=== PATIENT | female | born 1985 ===

== ENCOUNTER 2016-11-04 15:06 | Emergency (ER) | payer OTHER ==
[2016-11-04 15:33] VITALS: BMI 32.9
--- NOTE | 2016-11-04 18:22 | US ---
PROCEDURE: Ultrasound examination of the pelvis. HISTORY: decreased movement COMPARISON: Comparison is made to the previous study dated 05/27/2016 TECHNIQUE: Limited ultrasound examination of the 3rd trimester to evaluate biophysical profile, presentation and uterine cervix. FINDINGS: Single intrauterine live seen at cephalic presentation. The heart rate is 126 BPM. The main tech fluid index is 12.2 centimeter. The cervix is closed measures 4.3 centimeter. The calculated biophysical profile is 8 of 8. Placenta is seen at the anterior wall. IMPRESSION: Single intrauterine seen at cephalic presentation at the time of this exam with the ultrasound estimated gestational age of 39 weeks 6 days. Cervix length is 4.3 centimeter. Amniotic fluid index is 12.2 centimeter.
--- NOTE | 2016-11-04 19:07 | OBHP ---
Datetime: 11/04/2016 16:45 IP Adm Impression: Term, intrauterine IP Admit Plan: Observation/Evaluation; Discharge home Admit Comment, IP Provider: 30 yo G1 at 39+6 wks w/ little PN care, w/ [facility] 11/05/2016 c/o "crazy nayan k pain for a couple of days," decribes kristina pain as consistent but waxed and wanes. Pt reports that she doesn't know if she is having ctxns. Pt also reports leaking a litle this am, also reports decr eased FM since 10:30 am. Pt also reports a lot of pressure in pelvic area, reports a fishy odor, den ies an itch. PMH: Healthy PSH: None Meds: None Soc hx: pt elmer tobacco, alcohol, and illicit drugs Fam hx: F-DM, PGM-DM Stage Technician hx: 13x irreg periods q1-3 months, no STDs, no abn paps PE: AFVSS Gen'l pt appears comfortable lying in bed Abd: soft, NT, gravid Ext: NT Spec: white liquid discharge, neg nitrazine, positive fishy odor VE: C/L/ high at 4:24 pm A/P: 30 yo G1 at 39+6 wks w/ back pain, discomfort, decreased FM, bacterial vaginosis U/s: Cephalic presentation, CL 4.3 cm, BPP 8/8. SUZANNE 12.2 Rx Flagyl given for BV Rec that she try tylenol, warm shower, and massage for back pain Pt discharged home and pt told to keep her appointment at clinic on 11/08/2016 Extremities - PN: Normal Abdomen - PN: Normal General - PN: Normal FHR - Baseline A Provider: 130 Membranes, Provider: Intact Nitrazine Provider: Negative EGA AdmitDate IP: 39.6 Vital Signs Provider: Reviewed IP Chief Complaint: Decreased movement; Maternal discomfort NICHD Variability Prov Fetus A: Moderate 6-25bpm NICHD Accel Fetus A IP Provider: 15X15 FHR Category Provider Fetus A: Category I NICHD Decel Fetus A IP Provider: None Dilatation, Provider: 0 Effacement, Provider: 0 Station, Provider: -3 Genitourinary Exam: Abnormal
== END 2016-11-04 18:45 | disposition home or self-care (01) ==
LOC: H.EROB2 15:06
DX: O47.1 False labor at or after 37 completed weeks of gestation (principal); Z3A.40 40 weeks gestation of pregnancy

== ENCOUNTER 2016-11-09 11:12 | Emergency (ER) | payer OTHER ==
--- NOTE | 2016-11-09 13:35 | OBHP ---
Datetime: 11/09/2016 12:04 IP Adm Impression: Term, intrauterine IP Admit Plan: Observation/Evaluation Admit Comment, IP Provider: 30 yo , f, at 40.4 weeks GA with TATY: 11/05/16 By Us at 16.6. weeks presents to [facility] c/o back pain started last monday, intermittent, worse today 5 am, not radiated, as sociated with pelvic pressure, but not painfull CTx. She denies VB, dysuria, fever, N/V/D. Reports mi nimal leaking fluids, but is reports she has not ruptured. care started in [facility]. PAtient only went for the registration and 1st labs, but did not go never for her first visit because st ates that someone in his family. PAtient reports coming to [facility] last monday for similar symptoms . POBhx: None PMhx: None Allergies: kiwi, no KNDA PSUrgx: None PShx: No ETOH, rect drugs, cig Prenatals incomplete HIV 1st T: neg HbsAg: neg 1 hour glucola: 118 mg/dl Assessment/Plan: 30 yo , f, at 40.4 weeks GA c/o Back pain. No care -Observation L _ D -Continous monitoring Sushil Omalley Case discussed with Dr Benitez Review of systems patient denies headache chest pain shortness of breath palpitations nausea vomit ing dysuria vaginal bleeding patient denies heat or cold intolerance easy bruisability musculoskeleta l or neurological complaints The patient was seen with the resident I agree with the note Patient was observed, the patient is not in labor, the patient will be discharged home. The patient was instructed to follow-up on December 02 7 PM for induction of labor. Patient was provided with labor precautions and kick counts upon discharge Pelvic Type - PN: Adequate Extremities - PN: Normal Abdomen - PN: Normal Back - PN: Abnormal Breast - PN: Not Done Lungs - PN: Normal Heart - PN: Normal Thyroid - PN: Not Done Neurologic - PN: Not Done HEENT - PN: Normal General - PN: Normal FHR - Baseline A Provider: 140 Membranes, Provider: Intact Contraction Comments Provider: irregular Comments, ACOG Physical Exam: MSK: Lower back Td to palpation B/L , no CVTA B/L Us bedside: Vertex SSE: cervix anterior , no ammniotic fluids with valsalva maneuver. Pool Provider: Negative EGA AdmitDate IP: 40.4 Vital Signs Provider: Reviewed; Within Normal Limits IP Chief Complaint: Other NICHD Variability Prov Fetus A: Moderate 6-25bpm NICHD Accel Fetus A IP Provider: 15X15 FHR Category Provider Fetus A: Category I NICHD Decel Fetus A IP Provider: None Dilatation, Provider: fingertip Effacement, Provider: no Station, Provider: high DTRs - PN: Not Done
== END 2016-11-09 13:30 | disposition home or self-care (01) ==
LOC: H.EROB2 11:12
DX: O47.1 False labor at or after 37 completed weeks of gestation (principal); Z3A.40 40 weeks gestation of pregnancy; O48.0 Post-term pregnancy

== ENCOUNTER 2016-11-11 21:39 | Inpatient (IN) | payer MEDICAID, OTHER ==
[2016-11-11] MEDS: Lactated Ringer's 1,000 ML IV SCH (23:35)
[2016-11-12 00:26] VITALS: BP 107/61; PULSE 106; TEMP 98.1
[2016-11-12 00:34] LABS: BASO # 0.1 K/uL (0.0-0.2); BASO % 0.5 % (0.0-2.0); EOS # 0.1 K/uL (0.0-0.7); EOS % 0.9 % (0.0-4.0); HEMATOCRIT 31.2 % (34.0-47.0); LYMPH # 1.9 K/uL (1.0-4.3); LYMPH % 18.4 % (20.0-40.0); MEAN CELL VOLUME 81.1 fl (81.0-99.0); MEAN CORPUSCULAR HEMOGLOBIN 25.8 pg (27.0-31.0); MEAN CORPUSCULAR HGB CONC 31.9 g/dL (33.0-37.0); MEAN PLATELET VOLUME 8.6 fl (7.2-11.7); MONO # 0.7 K/uL (0.0-0.8); MONO % 6.8 % (0.0-10.0); NEUT # 7.5 K/uL (1.8-7.0); NEUT % 73.4 % (50.0-75.0); RED CELL DISTRIBUTION WIDTH 14.8 % (11.5-14.5); WHITE BLOOD COUNT 10.1 K/uL (4.8-10.8)
[2016-11-12] MEDS ORDERED: Ampicillin 2 GM in Sodium Chloride 0.9% 100 ML IVPB STA (07:10)
[2016-11-12] MEDS ORDERED: Oxytocin 30 units/LR 500ML 500 ML IV SCH (07:30)
[2016-11-12] MEDS ORDERED: Oxytocin 30 units/LR 500ML 30 UNIT/500 ML BAG IV SCH (07:58)
--- NOTE | 2016-11-12 08:20 | OBADHP ---
Datetime: 11/11/2016 22:42 Admit Comment, IP Provider: 30 y/o at 40.6 weeks presents to L_D for scheduled induction of lab or. Has a history of lack of care at the clinic secondary to a loss in her family. Reports a n uneventful pregancy otherwise. Was seen at [facility] on 11/09 for back pain and was discharged with an i nduction of labor appointment. No changes since. Reports feeling well overall. Denies VB/LOF and some minor inconsistent contractions. Good movement. POBhx: None PMHx: None MEDS: PNVs daily during most of pregancy but inconsistent usage for the past week ALL: NKDA, kiwi, angioedema PSurgHx: None Socialhx: denies ETOH, tobacco, illicit drug use Prenatals incomplete HIV 1st: neg HbsAg: neg 1 hour glucola: 118 mg/dl GBS: UNKNOWN Assessment/Plan: 30 y/o at 40.6 weeks IUP -admit to unit -CBC, Type and Screen, HIV, RPR -1 L LR maintence @125mls/hr -anesthiology consult -cervidil -case discussed with Dr. Emmanuel Perkins MD PGY1 @ 22:57 the patient was seen with the resident and I agree with the note Pelvic Type - PN: Not Done Extremities - PN: Normal Abdomen - PN: Normal Back - PN: Normal Breast - PN: Normal Lungs - PN: Normal Heart - PN: Normal Thyroid - PN: Normal Neurologic - PN: Normal HEENT - PN: Normal General - PN: Normal Presentation-Admit: Vertex FHR - Baseline A Provider: 140 Gestation - Est Wks by US: 40.6 Vital Signs Provider: Reviewed; Within Normal Limits IP Chief Complaint: Scheduled induction of labor NICHD Variability Prov Fetus A: Moderate 6-25bpm NICHD Accel Fetus A IP Provider: 15X15 FHR Category Provider Fetus A: Category I NICHD Decel Fetus A IP Provider: None Genitourinary Exam: Not Done DTRs - PN: Normal EGA AdmitDate IP: 40.6 IP Adm Impression: Postterm, intrauterine IP Admit Plan: Admit to unit; Initiate labor induction protocol Datetime: 11/09/2016 12:04 Membranes, Provider: Intact Contraction Comments Provider: irregular Comments, ACOG Physical Exam: MSK: Lower back Td to palpation B/L , no CVTA B/L Us bedside: Vertex SSE: cervix anterior , no ammniotic fluids with valsalva maneuver. Pool Provider: Negative Dilatation, Provider: fingertip Effacement, Provider: no Station, Provider: high Datetime: 11/04/2016 16:45 Nitrazine Provider: Negative Datetime: 06/28/2016 14:10 IP Hx Assessment: No Care
[2016-11-12] MEDS: Lactated Ringer's 1,000 ML IV SCH ×3 (08:32→23:00)
--- NOTE | 2016-11-12 10:00 | OBPN ---
Datetime: 11/12/2016 09:17 IP Progress Impression: Reassuring heart rate IP Progress Plan: Induction Membranes, Provider: Intact FHR - Baseline A Provider: 130 Presentation-Admit: Vertex IP Progress Note Comment: s: +cramping; no c/o. reports good fm o: pit @ 2mU i:G1 41.1wk Induction/Inadequate PNC/ s/p cervidel/R-ni p: cont pit rubella vacc pp NICHD Accel Fetus A IP Provider: 10X10 FHR Category Provider Fetus A: Category I NICHD Variability Prov Fetus A: Moderate 6-25bpm Dilatation, Provider: 3 Effacement, Provider: 70 Station, Provider: -3/post NICHD Decel Fetus A IP Provider: None Datetime: 11/11/2016 22:42 Gestation - Est Wks by US: 40.6 Vital Signs Provider: Reviewed; Within Normal Limits Datetime: 11/09/2016 12:04 Pool Provider: Negative Contraction Comments Provider: irregular Datetime: 11/04/2016 16:45 Nitrazine Provider: Negative
[2016-11-12] MEDS ORDERED: AMPicillin 4 GM ONE (11:51)
[2016-11-12] MEDS: AMPicillin 1 GM in Sodium Chloride 0.9% 100 ML IVPB SCH ×4 (12:30→20:15)
[2016-11-12] MEDS ORDERED: Nalbuphine 20 mg/ml Inj (1 ml) IVP PRN (18:40)
[2016-11-12] MEDS ORDERED: Fentanyl/Bupivacaine HCl 250 ML EPI ONE (22:19)
[2016-11-12] MEDS ORDERED: Bupivacaine HCl 0.25% PF (10 ml) Inj ONE (22:19)
[2016-11-13] MEDS: AMPicillin 1 GM in Sodium Chloride 0.9% 100 ML IVPB SCH ×2 (01:45→05:45)
[2016-11-13] MEDS ORDERED: Bupivacaine HCl 0.25% PF (10 ml) Inj ONE (03:08)
[2016-11-13] MEDS: Lactated Ringer's 1,000 ML IV SCH (03:20)
[2016-11-13] MEDS ORDERED: ceFAZolin 2 GM in Sodium Chloride 0.9% 100 ML IVPB ONE (07:51)
--- NOTE | 2016-11-13 08:02 | OBPN ---
Datetime: 11/13/2016 07:56 IP Progress Impression: Arrest of dilatation/descent IP Informed Consent Obtain: Section Delivery Contraction Comments Provider: irreg FHR - Baseline A Provider: 120 IP Fetus A Comments: intermittent variable decel assoc with ctxs IP Progress Note Comment: s: comfortable with epidural I/P: arrest of labor primary - indications for d/w pt. she agrees with planned procedure. NICHD Accel Fetus A IP Provider: 15X15 NICHD Variability Prov Fetus A: Moderate 6-25bpm Dilatation, Provider: 8 Effacement, Provider: 90 Station, Provider: -2 NICHD Decel Fetus A IP Provider: Variable
[2016-11-13] MEDS ORDERED: Lidocaine 2% PF (10 ml) Amp ONE (08:29)
[2016-11-13] MEDS ORDERED: Morphine 1 mg/ml preservative-free Inj(Duramorph) ONE (08:37)
[2016-11-13] MEDS ORDERED: Phenylephrine 10 mg/ml Inj ONE (09:00)
[2016-11-13] MEDS ORDERED: DiphenhydrAMINE 50 mg/ml Inj IVP PRN (10:32)
[2016-11-13] MEDS ORDERED: Oxycodone/Acetaminophen 5/325 mg Tab PO PRN (10:45)
[2016-11-13] MEDS: Docusate-Senna 50 mg-8.6 mg Tab PO SCH (21:44)
[2016-11-14] MEDS: Lactated Ringer's 1,000 ML IV SCH (05:14)
[2016-11-14 06:52] LABS: HEMATOCRIT 25.3 % (34.0-47.0); MEAN CELL VOLUME 81.1 fl (81.0-99.0); MEAN CORPUSCULAR HEMOGLOBIN 26.2 pg (27.0-31.0); MEAN CORPUSCULAR HGB CONC 32.3 g/dL (33.0-37.0); WHITE BLOOD COUNT 9.6 K/uL (4.8-10.8)
[2016-11-14] MEDS: Prenatal Multivit/Folic Acid/Iron Tab PO SCH (08:55)
--- NOTE | 2016-11-14 12:29 | OBPPN ---
Datetime: 11/14/2016 07:43 PP Pain Prov: Within normal limits PP Nausea Prov: Denies PP Flatus Prov: No PP BM Prov: No PP Breasts Prov: Not Done PP Heart Prov: Normal PP Lungs Prov: Normal PP Abdomen/Uterus Prov: Normal PP Lochia Prov: Normal PP Vulva/Perineum Prov: Not Done PP CVA Tenderness Prov: Not Done PP Extremities Prov: Not Done PP C/S Incision Prov: Normal PP Progress Prov: Normal PP Impression Prov: Normal progression PP Plan Prov: Continue present management PP Progress Note Prov: 29 y/o now seen and examined at bedside. Patient had uneventful overnig ht. Patient reports mild pelvic pain controlled w/ pain meds. OOB/Ambulating w/o dizziness. Breast /bottle feeding w/o difficulty. Tolerating PO diet well. Lochia is less than menses in volume. Voi ding freely w/ no blood noted. Reports no bowel movement. Denies fevers, chills, n/v/d, CP/SOB, lig htheadedness and calf pain. PE: GEN: A_O, resting comfortably in bed, NAD Lung: CTA B/L, no wheezing, rhonchi, or rales CVS: S1, S2 wnl, RRR Abd: +BS, firm fundus below umbilicus. Incision dressed, dry, clean, and intact. No induration, redness, or fluctuation EXT: no edema, negative Bhumi's, calves non-tender Assessment: 29 y/o now s/p on 11/13/2016 @ 09:34 tolerating pain w/ medication, juan jose erating oral intake, adequate urine output, doing well on POD1. Plan: Percocet 5/325 mg 1-2 tabs PO Q6h prn for mod/severe pain. Ibuprofen 600 mg 1 tab Q6h PO pr n for mild pain. Encourage breast feeding and ambulation. Contreras Bolaños M.D. Locomotive Engineer Diesel PGY-1 obh addendum: pt seen _ exmined by me. agree with above assessment and plan. o:hgb 8.2 wound care_ hygiene d/w pt. rx feso4 on d/c home- pt advised to take with oj IP PP Procedures: None Vital Signs Provider PP: Reviewed; Within Normal Limits
--- NOTE | 2016-11-14 21:50 | OBDS ---
DELIVERY PERSONNEL Delivery Doctor: Marimar Strickland MD/ alexandra arteaga Scrub Nurse: Ella Quintana OBT Absence Management Consultant: Maria L Holden RNC elise olivo rnc Anesthesiologist: Zen Lilly MD Gore Seamer: jeronimo MATERNAL INFORMATION Delivery Anesthesia: Epidural; Spinal Medications in Delivery: 20 u pitocin 1000 cc rl Estimated Blood Loss (ml): 700 Placenta Cultured: No Maternal Complications: Other Other Maternal Complications: arrest to descent Provider Comments: op note preop dx: 41.1wk induction; arrest of descent and dilation postop dx: same procedure: primary LFTCS surgeon: grant cabrera asst: gary anesthesia: dr lilly - spinal ebl:[id number] drew cath to drainage path:none findings: viable female; 8_9; 3760g destination: pt to rr to nbn LABOR SUMMARY [facility]: 11/05/2016 00:00 No. Babies in Womb: 1 Attempted: No Labor Anesthesia: Epidural LABOR INFORMATION Reason for Induction: Not Applicable Onset of Labor: 11/12/2016 06:55 Cervical Ripening Agents: Cervidil Other Ripening Agents: Cervidil inserted by Dr. Rae Valle (Resident) Oxytocin: Induction Group B Beta Strep: Not Done Antibiotics # of Doses: ampicillin 2 x1 ampicillin 1 gramx5 Antibiotics Time of Last Dose: ancef 2 grams at 08:07 am Steroids Given: None Reason Steroids Not Administered: Not Applicable MEMBRANES Membranes Rupture Method: Spontaneous Rupture of Membranes: 11/12/2016 21:10 Length of Rupture (hrs): 12.40 Amniotic Fluid Color: Clear Amniotic Fluid Amount: Moderate Amniotic Fluid Odor: Normal STAGES OF LABOR Stage 3 hrs: 0 Stage 3 min: 1 Total Time in Labor hrs: 26 Total Time in Labor min: 40 CSECTION DELIVERY Primary Indication: Arrest of Descent Other Primary Indication: ftp Secondary Indication: ftp CSection Urgency: Non Elective CSection Incidence: Primary Labor: Labor Elective: Nonelective CSection Incision: Lower Uterine Transverse BABY A INFORMATION Delivery Date/Time: 11/13/2016 09:34 Method of Delivery: Born in Route : Yes : N/A Forceps: N/A Vacuum Extraction: N/A Shoulder Dystocia : No SHOULDER DYSTOCIA BABY A Delivery Date/Time: 11/13/2016 09:34 PRESENTATION/POSITION BABY A Presentation: Cephalic Cephalic Presentation: Vertex Vertex Position: Right Occipital Posterior Breech Presentation: N/A PLACENTA INFORMATION BABY A Placenta Delivery Time : 11/13/2016 09:35 Placenta Method of Delivery: Manual Removal Placenta Status: Delivered SCORES BABY A Heart Rate 1 min: >100 bpm Resp Effort 1 min: Good Cry Reflex Irritability 1 min: Grimace Muscle Tone 1 min: Active Motion Color 1 min: Body [place], Extremities Blue SCORE 1 MIN: 8 Heart Rate 5 min: >100 bpm Resp Effort 5 min: Good Cry Reflex Irritability 5 min: Cough or Sneeze or Pulls Away Muscle Tone 5 min: Active Motion Color 5 min: Body [place], Extremities Blue SCORE 5 MIN: 9 Heart Rate 10 min: >100 bpm Resp Effort 10 min: Good Cry Reflex Irritability 10 min: Cough or Sneeze or Pulls Away Muscle Tone 10 min: Active Motion Color 10 min: Completely [place] SCORE 10 MIN: 10 INFORMATION BABY A Gestational Age at Delivery: 41.0 Gestational Status: Term Infant Outcome : Liveborn Infant Condition : Stable Infant Sex: Female IDENTIFICATION/MEDS BABY A ID Band Number: [id number] ID Band Location: Left Leg; Left Arm WEIGHT/LENGTH BABY A Birthweight (gms): 3760 Weight (lb): 8 Infant Weight (oz): 5 Infant Length Inches: 21.00 Length cms: 53.3 CORD INFORMATION BABY A No. Cord Vessels: 3 Nuchal Cord : N/A Nuchal Cord Other: no True Knot: no Cord pH Baby Arterial: no Cord pH Baby Venous: no Cord Blood Taken: Yes Banking/Donate Info: no Infant Suction: Mouth; Nose ASSESSMENT BABY A Complications: None Physical Findings at Delivery: Within Normal Limits Infant Respirations: Appears Normal Care By: paty gracia /nuzhat cevallos rn Transferred To: [facility]
[2016-11-14] MEDS: Docusate-Senna 50 mg-8.6 mg Tab PO SCH (22:54)
[2016-11-15] MEDS: Oxycodone/Acetaminophen 5/325 mg Tab PO PRN ×3 (07:05→21:15)
[2016-11-15] MEDS: Prenatal Multivit/Folic Acid/Iron Tab PO SCH (08:23)
--- NOTE | 2016-11-15 08:25 | OP ---
PROCEDURE DATE: 11/13/2016 PREOPERATIVE DIAGNOSES: 1. 41.1 week induction. 2. Arrested descent and dilation. POSTOPERATIVE DIAGNOSES: 1. 41.1 week induction. 2. Arrested descent and dilation. PROCEDURE: Primary low transverse section. SURGEON: Richard Patel MD HOUSEKEEPING ROOM INSPECTOR: Dr. Benitez. ANESTHESIOLOGIST: Dr. Lilly. ANESTHESIA: Spinal. ESTIMATED BLOOD LOSS: 700 mL. CATHETER: Mccrary catheter was placed to drainage. COMPLICATIONS: None. PATHOLOGY: No specimens. FINDINGS: Showed a viable female infant with Apgars of 8 and 9 and a weight of 3760 grams, noted to be in vertex position of right occiput posterior. DESTINATION: The patient to recovery room and to nursery. INDICATIONS: The patient is a 30-year-old female, 1, para 0 who presented at 41 weeks for induction of labor. The patient progressed to 8 cm and -1 station and remained at that dilation and station with arrest of descent and dilation. Indications for section were discussed with patient and she agreed with planned procedure. PROCEDURE: The patient was taken to the operating room where her epidural was found to be inadequate. She, therefore, underwent a spinal. She was then placed in dorsal supine position with a leftward tilt and prepped and draped in the routine sterile fashion. A Pfannenstiel skin incision was made with the scalpel and the incision was carried down to the underlying rectus fascia with the Bovie. The rectus fascia was incised in the midline and extended bilaterally with the Mayos. The inferior rectus fascial edge was grasped with Kochers, elevated, and the underlying rectus muscle dissected off. Same procedure was performed along the superior rectus fascial edge. The rectus muscle was in the midline and the peritoneum was identified, tented upward and incised superiorly and inferiorly. The bladder flap was created using sharp and blunt dissection and the bladder blade was placed to retract the bladder further down. Lower uterine transverse incision was made with a knife and the uterine cavity entered with the hemostat. Clear amniotic fluid was noted and the incision was extended digitally in an anterior and posterior manner. The was noted to be in right occiput posterior presentation. The 's head was delivered followed by delivery of the remaining portion of the baby. The mouth and nares were suctioned. The cord was clamped and cut and the baby was handed off to the awaiting civil engineering draftsperson. Cord blood was collected. The placenta was delivered spontaneously and intact. The uterus was exteriorized and cleared of all clots and debris. The uterine incision was reapproximated with 0 Vicryl in a running lock fashion followed by an imbricated stitch with 0 Monocryl. Good hemostasis was confirmed. The abdomen was irrigated and cleared of all clots and debris. The uterus was returned to the abdomen and pelvic cavity was irrigated and cleared of all clots and debris. The uterine incision was reinspected and good hemostasis confirmed. The peritoneum was reapproximated with 2-0 Vicryl in a running fashion. The fascia was reapproximated with 0 Vicryl in a running fashion beginning at left lateral corner going to midline and followed by another stitch beginning in the right lateral corner going to midline. Each suture was respectively tied. The wound was irrigated and good hemostasis confirmed. The subcutaneous tissue was reapproximated with 2-0 plain in simple interrupted fashion. Subcuticular reapproximation of the skin was performed with 4-0 Vicryl. Of note, Dr. Benitez was my executive personal assistant in the procedure. He assisted with surgical entry, surgical exposure, surgical hemostasis, delivery of the baby and surgical closure. All sponge, lap, and needle counts were correct x 2 and the patient returned to recovery room in satisfactory condition. Richard Patel MD cc: [id number] TT: 11/14/2016 22:45:53 savannah PRESLEY
--- NOTE | 2016-11-15 14:44 | OBPPN ---
Datetime: 11/15/2016 12:03 PP Pain Prov: Within normal limits PP Nausea Prov: Denies PP Flatus Prov: Yes PP BM Prov: No PP Breasts Prov: Not Done PP Heart Prov: Normal PP Lungs Prov: Normal PP Abdomen/Uterus Prov: Normal PP Lochia Prov: Normal PP Vulva/Perineum Prov: Not Done PP CVA Tenderness Prov: Not Done PP Extremities Prov: Not Done PP C/S Incision Prov: Normal PP Progress Prov: Normal PP Impression Prov: Normal progression PP Plan Prov: Continue present management PP Progress Note Prov: 29 y/o now seen and examined at bedside. Patient had uneventful overnig ht. Patient reports mild pelvic pain controlled w/ pain meds. OOB/Ambulating w/o dizziness. Breast /bottle feeding w/o difficulty. Tolerating PO diet well. Lochia is less than menses in volume. Voi ding freely w/ no blood noted. Reports no bowel movement. Denies fevers, chills, n/v/d, CP/SOB, lig htheadedness and calf pain. PE: GEN: A_O, resting comfortably in bed, NAD Lung: CTA B/L, no wheezing, rhonchi, or rales CVS: S1, S2 wnl, RRR Abd: +BS, firm fundus below umbilicus. Incision dressed, dry, clean, and intact. No induration, redness, or fluctuation EXT: no edema, negative Bhumi's, calves non-tender Assessment: 29 y/o now s/p on 11/13/2016 @ 09:34 tolerating pain w/ medication, juan jose erating oral intake, adequate urine output, doing well on POD2. Plan: Percocet 5/325 mg 1-2 tabs PO Q6h prn for mod/severe pain. Ibuprofen 600 mg 1 tab Q6h PO pr n for mild pain. Encourage breast feeding and ambulation. Contreras Bolaños M.D. Level Vial Inspector PGY-1 OB Hospitalist on-call. I saw and examined this patient on rounds. Agree with note. MARY IPSANO PP Procedures: None Vital Signs Provider PP: Reviewed; Within Normal Limits
[2016-11-15] MEDS ORDERED: Lidocaine 5% Patch TD SCH ×2 (16:30→18:00)
--- NOTE | 2016-11-15 17:13 | CP.PCM.CON ---
History of Present Illness - History of Present Illness History of Present Illness: cc: bilateral neck pain s/p POD #2 30 yr old F s/p on 11/13/16 with no significant PMHX with complaint of bilateral neck pain extending to shoulders not relieved by 1 dose of percocet and 1 dose of motrin. Patient denies headaches, visual changes, dizziness, weakness, numbness or tingling. She reports normal urine output, tolerating PO diet and is ambulating without difficulty. Patient reports she breastfed once since and is now formula feeding her baby. PMHx: none SurgHx: 11/13/16 SocHx: denies smoking/Etoh/drugs Allergies: NKDA, food (kiwi) Meds: none Review of Systems - Review of Systems All systems: reviewed and no additional remarkable complaints except (for what is mentioned in HPI) Past Patient History - Infectious Disease Hx of Infectious Diseases: None - Past Social History Smoking Status: Never Smoked - CARDIAC Hx Cardiac Disorders: No - PULMONARY Hx Respiratory Disorders: No - ENDOCRINE/METABOLIC Hx Endocrine Disorders: No - HEMATOLOGICAL/ONCOLOGICAL Hx Blood Disorders: No - MUSCULOSKELETAL/RHEUMATOLOGICAL Hx Fractures: Yes (elbow,ankle,toe) - GENITOURINARY/GYNECOLOGICAL Hx Genitourinary Disorders: Yes Hx Urinary Tract Infection: Yes - PSYCHIATRIC Hx Substance Use: No - SURGICAL HISTORY Hx Surgeries: No - ANESTHESIA Hx Anesthesia: No Meds Allergies/Adverse Reactions: Allergies Allergy/AdvReac Type Severity Reaction Status Date / Time kiwi Allergy ANGIOEDEMA Verified 11/12/16 19:46 - Medications Medications: Current Medications Ibuprofen (Motrin Tab) 600 mg PO Q4H PRN PRN Reason: Pain, Mild (1-3) Last Admin: 11/15/16 13:52 Dose: 600 mg Lidocaine (Lidoderm) 2 ea TD DAILY DEMARCO Oxycodone/Acetaminophen (Percocet 5/325 Mg Tab) 2 tab PO Q4 PRN PRN Reason: Pain, severe (8-10) Stop: 11/16/16 10:46 Oxycodone/Acetaminophen (Percocet 5/325 Mg Tab) 1 tab PO Q4 PRN PRN Reason: Pain, moderate (4-7) Stop: 11/16/16 10:46 Last Admin: 11/15/16 12:36 Dose: 1 tab Multivit/Folic Acid/Iron () 1 tab PO DAILY DEMARCO Last Admin: 11/15/16 08:23 Dose: 1 tab Senna/Docusate Sodium (Senokot S 50 Mg-8.6 Mg) 2 tab PO HS [facility] Last Admin: 11/14/16 22:54 Dose: 2 tab Physical Exam - Constitutional Appears: Well, Non-toxic, No Acute Distress - Head Exam Head Exam: ATRAUMATIC, NORMOCEPHALIC - Eye Exam Eye Exam: EOMI, PERRL - ENT Exam ENT Exam: Mucous Membranes Moist - Neck Exam Neck exam: Positive for: Full Rom, Tenderness (moderate along superficial palpation of trapezius). Negative for: Lymphadenopathy - Respiratory Exam Respiratory Exam: Clear to Auscultation Bilateral, NORMAL BREATHING PATTERN. absent: Rales, Rhonchi - Cardiovascular Exam Cardiovascular Exam: REGULAR RHYTHM, +S1, +S2 - GI/Abdominal Exam GI & Abdominal Exam: Normal Bowel Sounds, Soft, Tenderness (minimal tenderness near incision). absent: Distended - Extremities Exam Extremities exam: Positive for: full ROM. Negative for: calf tenderness, joint swelling, pedal edema - Back Exam Back exam: absent: CVA tenderness (L), CVA tenderness (R) - Neurological Exam Neurological exam: Alert, CN II-XII Intact, Normal Gait, Oriented x3 - Psychiatric Exam Psychiatric exam: Normal Affect, Normal Mood - Skin Skin Exam: Dry, Intact, Normal Color, Warm Results - Vital Signs Recent Vital Signs: Last Vital Signs Temp 98.1 F 11/12/16 00:26 Pulse 106 H 11/12/16 00:26 Resp BP 107/61 11/12/16 00:26 Pulse Ox - Labs Result Diagrams: 11/14/16 06:40 Assessment & Plan - Assessment and Plan (Free Text) Assessment: 30 yr old F POD# 2 s/p on 11/13/16 with no significant PMHX with complaint of bilateral neck pain extending to shoulders not relieved by 1 dose of percocet and 1 dose of motrin. Patient has asymptomatic anemia, is stable with normal neurological exam. 1. Bilateral neck pain -likely musculoskeletal in nature -neurological exam within normal limits, no leukocytosis, afebrile -alternate hot and cold packs -Lidoderm patch TD QD 2. Asymptomatic anemia s/p POD # 2 -vital signs stable -recommend ferrous sulfate 325mg PO BID -monitor signs/symptoms -case discussed with Dr. Meliton Rutledge who agrees with the assessment and plan above. -signing off on the case Pauline Benitez M.D. PGY1 - Date & Time Date: 11/15/16 Time: 16:30
[2016-11-15] MEDS: Docusate-Senna 50 mg-8.6 mg Tab PO SCH (21:16)
[2016-11-16] MEDS: Prenatal Multivit/Folic Acid/Iron Tab PO SCH (08:24)
[2016-11-16] MEDS ORDERED: Measles, Mumps, and Rubella 0.5 ML VIAL SC ONE (08:30)
--- NOTE | 2016-11-16 10:55 | OBDCSUM ---
Datetime: 11/16/2016 05:54 Discharged to, Provider: Home Follow up at, Provider: [facility] Disch Instr Activity: Normal activity Disch Instr Diet: Regular Discharge Instructions, Provider: Routine instructions given Discharge Diagnosis, Provider: Term Delivered Discharge Time: 11/16/2016 05:00 Follow up in weeks, Provider: 1 week Disch Referrals: None Contraception discussed, Prov: Yes Disch Activity Restrictions: No exercising; No lifting; No sexual activity; Nothing in vagina - Inte rcourse, tampons, douche Discharge Comment, Provider: The patient was seen with the resident and I agree with the notes. Angie ent cleared for discharge Contraception after Delivery: IUD; Foam/Condoms
== END 2016-11-16 13:55 | disposition home or self-care (01) | DRG 766 ==
LOC: H.EROB2 21:39 → H.L&D 22:30 → H.OB/GYN 11-13 15:00
PROVIDERS: ADMIT Obstetrics & Gynecology Gynecology; ATTEND Obstetrics & Gynecology Gynecology
PROC: 4A1HXCZ Monitoring of Products of Conception, Cardiac Rate, External Approach (ICD-10-PCS; 2016-11-11)
PROC: 10D00Z1 Extraction of Products of Conception, Low, Open Approach (ICD-10-PCS; principal; 2016-11-14)
DX: O62.0 Primary inadequate contractions (principal); D64.9 Anemia, unspecified; O48.0 Post-term pregnancy; Z37.0 Single live birth; Z87.440 Personal history of urinary (tract) infections; Z3A.41 41 weeks gestation of pregnancy; O62.1 Secondary uterine inertia; O99.02 Anemia complicating childbirth